=== PATIENT | female | born 1940 | race Caucasian/White ===

== ENCOUNTER 2019-06-23 11:25 | Outpatient (CLI) | payer MEDICARE, BC, SELFPAY ==
--- NOTE | 2019-06-23 11:32 | MM_ITS ---
WS: [id number] Bilateral diagnostic digital mammogram, 06/23/2019 Clinical Data: MASTODYNIA;LT BREAST PAIN Comparison: 11/30/2016, 07/15/2014, 06/11/2013, 06/02/2013, 07/14/2010. Findings: No spiculated masses nor clustered calcifications are seen. There are no secondary signs of carcinoma . There are mole markers on the breast. There are calcifications in the plata of small vessels. The b reast parenchymal pattern shows heterogeneous density. MM/[place] [id number] Impression: 1. Negative bilateral mammograms unchanged. 2. Recommend yearly mammograms. BIRADS: 1-Negative FOLLOW UP: 1 Year Follow-up The [employer]er was used.
== END 2019-06-23 11:26 | disposition home or self-care (01) ==
LOC: RADSHAW 11:26
PROVIDERS: Family Provider Family Medicine; PCP Family Medicine; Visit Provider Family Medicine
DX: N64.4 Mastodynia (principal)
CPT/HCPCS: 77066

== ENCOUNTER 2020-07-26 14:26 | Outpatient (CLI) | payer MEDICARE, BC, SELFPAY ==
--- NOTE | 2020-07-26 14:30 | MM_ITS ---
WS: [id number] BILATERAL DIGITAL SCREENING MAMMOGRAPHY WITH CAD CLINICAL INFORMATION: SCREENING HISTORY: Screening mammogram. No current complaints. COMPARISON: June 23, 2019 TECHNIQUE: Bilateral CC and MLO views. FINDINGS: The breasts are composed of heterogeneous fibroglandular density tissue, which can limit the detectio n of small underlying mass lesions. No suspicious mass, asymmetry, calcifications, or architectural d istortion. No evidence of malignancy. Benign punctate calcifications. Vascular calcification. MM/[place] [id number] IMPRESSION: BI-RADS: 2-Benign FOLLOW UP: 1 Year Follow-up Recommend return to annual screening mammography.
== END 2020-07-26 14:27 | disposition home or self-care (01) ==
LOC: RADSHAW 14:29
PROVIDERS: PCP Family Medicine; Visit Provider Family Medicine
DX: Z12.31 Encounter for screening mammogram for malignant neoplasm of breast (principal)
CPT/HCPCS: 77067

== ENCOUNTER 2020-09-20 12:31 | Outpatient (CLI) | payer MEDICARE, BC, SELFPAY ==
--- NOTE | 2020-09-20 12:40 | XR_ITS ---
WS: [id number] Exam: XR wrist RT min 3V* [id number] Date/Time of Exam: 09/20/2020 12:51 PM Reason For Exam: S/P FALL, RADIAL PAIN RT WRIST INJURY No fracture or dislocation noted. There is calcification of the triangular fibrocartilage. Mild degen erative thinning of the radiocarpal joint. 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 XR/XR wrist RT min 3V* [id number] IMPRESSION: 1. Mild degenerative change. No fracture or dislocation.
== END 2020-09-20 12:32 | disposition home or self-care (01) ==
PROVIDERS: PCP Family Medicine; Visit Provider Family Medicine
DX: S69.91XA Unspecified injury of right wrist, hand and finger(s), initial encounter (principal); W19.XXXA Unspecified fall, initial encounter
CPT/HCPCS: 73110

== ENCOUNTER 2021-02-09 10:36 | Outpatient (CLI) | payer MEDICARE, BC, SELFPAY ==
--- NOTE | 2021-02-09 11:36 | CT_ITS ---
WS: [id number] CT ABDOMEN AND PELVIS NONCONTRAST HISTORY: RT FLANK PAIN AND HEMATURIA TECHNIQUE: Imaging performed through the abdomen and pelvis. Coronal and sagittal reformats are submi tted. All CT scans at [facility] use at least one of these dose optimization techniques: auto mated exposure control; mA and/or kV adjustment per patient size (includes targeted exams where dose is matched to clinical indication); or iterative reconstruction. DLP: 989.76 mGycm COMPARISON: 07/29/2014 Lower thorax: Lung bases are clear. Visualized heart is normal. No hiatal hernia. Liver: Mild coarsened echotexture. No mass. Mild central bile duct dilatation is similar to prior examination. Gallbladder: Prior cholecystectomy. Mildly dilated common bile duct at the pancreatic head Pancreas: Normal size and attenuation. Normal pancreatic duct. No pancreatitis or mass. Spleen: Normal. Adrenal glands: Normal. No mass. Right kidney: Simple cyst lower pole RIGHT kidney measures 4.6 x 5.5 cm. No calcifications or obstruc tion. Left kidney: Normal size kidney with no mass or hydronephrosis. Aorta: Mild atherosclerosis abdominal aorta with no aneurysm. No free fluid, intraperitoneal air or significant lymphadenopathy. GI tract: Moderate diffuse constipation and fecal retention. Cecum is deep within the RIGHT pelvis. T he appendix is not definitely identified but there are no secondary changes for appendicitis. Abdominal wall: Negative. No hernia. Pelvis: Prior hysterectomy. Osseous structures: L5 anterolisthesis by 8 mm. Moderate scoliosis of the lumbar spine. No fracture. CT/CT kidney stone [id number] IMPRESSION: 1. Moderate diffuse constipation. 2. No acute abdominal or pelvic abnormalities. 3. Stable RIGHT renal cyst measures 4.6 x 5.5 cm. 4. No renal calcifications or obstruction. 5. Prior cholecystectomy and hysterectomy.
== END 2021-02-09 10:37 | disposition home or self-care (01) ==
PROVIDERS: PCP Family Medicine; Visit Provider Family Medicine
DX: R10.9 Unspecified abdominal pain (principal); R31.9 Hematuria, unspecified; K59.00 Constipation, unspecified; Q61.01 Congenital single renal cyst; Z90.49 Acquired absence of other specified parts of digestive tract; Z90.710 Acquired absence of both cervix and uterus
CPT/HCPCS: 74176

== ENCOUNTER 2021-10-27 09:12 | Outpatient (CLI) | payer MEDICARE, SELFPAY ==
--- NOTE | 2021-10-27 09:24 | MM_ITS ---
WS: [id number] BILATERAL SCREENING DIGITAL BREAST TOMOSYNTHESIS MAMMOGRAM WITH CAD HISTORY: SCREENING COMPARISON: 07/26/2020 and 06/23/2019 Bilateral CC and MLO views with tomosynthesis and synthetic mammography submitted. Computer aided det ection analyzed. Breast composition: The breasts are heterogeneously dense, which may obscure small masses. No suspici ous masses, microcalcifications or architectural distortion. Stable asymmetries. Benign arterial calc ifications. MM/[place] [id number] IMPRESSION: BI-RADS: 2-Benign FOLLOW UP: 1 Year Follow-up
== END 2021-10-27 09:13 | disposition home or self-care (01) ==
PROVIDERS: PCP Family Medicine; Visit Provider Family Medicine
DX: Z12.31 Encounter for screening mammogram for malignant neoplasm of breast (principal)
CPT/HCPCS: 77063; 77067

== ENCOUNTER 2021-11-15 14:04 | Outpatient (CLI) | payer MEDICARE, SELFPAY ==
--- NOTE | 2021-11-15 14:12 | XR_ITS ---
WS: [id number] DEXA (DUAL ENERGY X-RAY ABSORPTIOMETRY) Bone mineral density was performed using a [id number] machine. HISTORY: POST MENOPAUSAL COMPARISON: 05/31/2017 Lumbar spine BMD (L2-L4): 0.956 T score: -2.0 Z score: 0.2 Total hip BMD: Left: 0.658 g/cm2. T score: -2.8 Z score: -0.5 Right: 0.692 g/cm2. T score: -2.5 Z score: -0.2 10 year probability of a major osteoporotic fracture is 22.8%. Compared to the prior study from 05/31/2017. Lumbar spine bone mineral density has increased by 3.5%. Bilateral hips bone mineral density has decreased by 4.9%. XR/XR DEXA axial skeleton* [id number] IMPRESSION: OSTEOPOROSIS based upon the WHO classification for females. Significant decrease in bone mineral density within the hips since the prior .
== END 2021-11-15 14:05 | disposition home or self-care (01) ==
LOC: RAD 14:07
PROVIDERS: PCP Family Medicine; Visit Provider Family Medicine
DX: Z78.0 Asymptomatic menopausal state (principal); M81.0 Age-related osteoporosis without current pathological fracture
CPT/HCPCS: 77080

== ENCOUNTER → 2021-11-27 08:06 | Outpatient (BNVA) | payer MEDICARE, SELFPAY | PROVIDERS: PCP Family Medicine; Visit Provider Podiatrist Foot & Ankle Surgery | DX: M21.611 Bunion of right foot (principal); M20.41 Other hammer toe(s) (acquired), right foot; M79.673 Pain in unspecified foot | CPT/HCPCS: 73630; 99203; 99204 ==

== ENCOUNTER → 2022-03-14 08:17 | Outpatient (BNVA) | payer MEDICARE, SELFPAY | PROVIDERS: PCP Family Medicine; Visit Provider Podiatrist Foot & Ankle Surgery | DX: M21.611 Bunion of right foot (principal); M20.41 Other hammer toe(s) (acquired), right foot; M76.71 Peroneal tendinitis, right leg | CPT/HCPCS: 20550 ==

== ENCOUNTER → 2022-04-10 13:36 | Outpatient (BNVA) | payer MEDICARE, SELFPAY | PROVIDERS: PCP Family Medicine; Visit Provider Urology | DX: N36.2 Urethral caruncle (principal); R31.0 Gross hematuria | CPT/HCPCS: 52000; 81003; 99203 ==

== ENCOUNTER → 2022-05-16 07:59 | Outpatient (BNVA) | payer MEDICARE, SELFPAY | PROVIDERS: PCP Family Medicine; Visit Provider Podiatrist Foot & Ankle Surgery | DX: M21.611 Bunion of right foot (principal); M20.41 Other hammer toe(s) (acquired), right foot; M76.71 Peroneal tendinitis, right leg; L84 Corns and callosities | CPT/HCPCS: 99214 ==

== ENCOUNTER → 2022-06-18 11:13 | Outpatient (BNVA) | payer MEDICARE, SELFPAY | PROVIDERS: PCP Family Medicine; Visit Provider Podiatrist Foot & Ankle Surgery | DX: M21.611 Bunion of right foot (principal); M20.41 Other hammer toe(s) (acquired), right foot; M76.71 Peroneal tendinitis, right leg; L84 Corns and callosities; M67.471 Ganglion, right ankle and foot | CPT/HCPCS: 99213 ==

== ENCOUNTER → 2022-08-29 08:16 | Outpatient (BNVA) | payer MEDICARE, SELFPAY | PROVIDERS: PCP Family Medicine; Visit Provider Podiatrist Foot & Ankle Surgery | DX: M21.611 Bunion of right foot (principal); M20.41 Other hammer toe(s) (acquired), right foot; M76.71 Peroneal tendinitis, right leg; L84 Corns and callosities; M67.40 Ganglion, unspecified site | CPT/HCPCS: 99213 ==

== ENCOUNTER → 2022-10-17 11:16 | Outpatient (BNVA) | payer MEDICARE, SELFPAY | PROVIDERS: PCP Family Medicine; Visit Provider Podiatrist Foot & Ankle Surgery | DX: M20.41 Other hammer toe(s) (acquired), right foot (principal); L84 Corns and callosities; M71.371 Other bursal cyst, right ankle and foot; M67.471 Ganglion, right ankle and foot | CPT/HCPCS: 99213 ==

== ENCOUNTER → 2022-11-06 09:20 | Outpatient (BNVA) | payer MEDICARE, SELFPAY | PROVIDERS: PCP Family Medicine; Referring Provider Family Medicine; Visit Provider Nurse Practitioner Family | DX: L21.8 Other seborrheic dermatitis (principal) | CPT/HCPCS: 99204 ==

== ENCOUNTER 2022-11-13 09:55 | Outpatient (CLI) | payer MEDICARE, SELFPAY ==
--- NOTE | 2022-11-13 10:08 | MM_ITS ---
WS: [id number] BILATERAL 3D TOMOSYNTHESIS DIGITAL SCREENING MAMMOGRAPHY WITH CAD CLINICAL INFORMATION: SCREENING HISTORY: Screening mammogram. No current complaints. COMPARISON: 2021 TECHNIQUE: Bilateral CC and MLO views. FINDINGS: The breasts are composed of heterogeneous fibroglandular density tissue, which can limit the detectio n of small underlying mass lesions. No suspicious mass, asymmetry, calcifications, or architectural d istortion. No evidence of malignancy. Vascular calcification. Incidental punctate calcifications. IMPRESSION: MM/[place] [id number] BI-RADS: 2-Benign FOLLOW UP: 1 Year Follow-up Recommend return to annual screening mammography.
== END 2022-11-13 09:56 | disposition home or self-care (01) ==
LOC: RAD 10:03 → MOBLMAM 10:07
PROVIDERS: PCP Family Medicine; Visit Provider Family Medicine
DX: Z12.31 Encounter for screening mammogram for malignant neoplasm of breast (principal)
CPT/HCPCS: 77063; 77067

== ENCOUNTER → 2022-11-27 11:22 | Outpatient (BNVA) | payer MEDICARE, SELFPAY | PROVIDERS: PCP Family Medicine; Visit Provider Podiatrist Foot & Ankle Surgery | DX: M67.40 Ganglion, unspecified site (principal); M20.41 Other hammer toe(s) (acquired), right foot; L84 Corns and callosities; M71.30 Other bursal cyst, unspecified site | CPT/HCPCS: 99213 ==

== ENCOUNTER → 2023-01-07 11:42 | Outpatient (BNVA) | payer MEDICARE, SELFPAY | PROVIDERS: PCP Family Medicine; Visit Provider Nurse Practitioner Family | DX: L21.8 Other seborrheic dermatitis (principal); L57.8 Other skin changes due to chronic exposure to nonionizing radiation; L81.4 Other melanin hyperpigmentation; L82.1 Other seborrheic keratosis | CPT/HCPCS: 99213 ==

== ENCOUNTER → 2023-01-30 08:55 | Outpatient (BNVA) | payer MEDICARE, SELFPAY | PROVIDERS: PCP Family Medicine; Visit Provider Podiatrist Foot & Ankle Surgery | DX: M20.41 Other hammer toe(s) (acquired), right foot; L84 Corns and callosities; M67.471 Ganglion, right ankle and foot; M71.371 Other bursal cyst, right ankle and foot | CPT/HCPCS: 99213 ==

== ENCOUNTER → 2023-06-20 10:20 | Outpatient (BNVA) | payer MEDICARE, SELFPAY | PROVIDERS: PCP Family Medicine; Visit Provider Obstetrics & Gynecology | DX: N89.8 Other specified noninflammatory disorders of vagina (principal); Z90.710 Acquired absence of both cervix and uterus | CPT/HCPCS: 76830 ==